=== PATIENT | female | born 1955 | race Caucasian/White ===

== ENCOUNTER 2016-12-09 18:48 | Emergency (ER) | payer MEDICARE ==
[~2016-12-09] VITALS: Ht 176.5 cm; Wt 54.0 kg
[2016-12-09 18:52] VITALS: BP 137/65; PULSE 64; RESP 20; TEMP 97.9; O2SAT 96
[2016-12-09 21:20] VITALS: BP 141/64; PULSE 53; RESP 20; O2SAT 99
[2016-12-09] MEDS ORDERED: ZOCO20TA PO (21:20)
[2016-12-09] MEDS ORDERED: SUCR1TAB PO (21:20)
[2016-12-09] MEDS ORDERED: LEVO50TA4 PO (21:20)
[2016-12-09] MEDS ORDERED: BENA25TA3 PO (21:20)
[2016-12-09] MEDS ORDERED: CLON1TAB PO (21:20)
[2016-12-09] MEDS ORDERED: LIAL1.2T PO (21:20)
[2016-12-09] MEDS ORDERED: ZOLO100T PO (21:20)
[2016-12-09] MEDS ORDERED: diphenhydrAMINE HCL 50 MG/ML VIAL IV PUSH ONE (21:30)
[2016-12-09] MEDS ORDERED: LORazepam 2 MG/ML VIAL IVP ONE (21:30)
--- NOTE | 2016-12-09 22:13 | PD ---
HPI Chief Complaint: Medical Clearance Time Seen by Provider: 21:06 Travel History International Travel<30 days: No Contact w/Intl Traveler<30days: No Traveled to known affect area: No History of Present Illness HPI This patient 61 years old. She suffers with a "functional movement disorder." She reports spasm activities involving muscle distributions throughout the face neck cord extremities. Evidently Klonopin 1.5 mg and Benadryl 25 mg given thrice daily confer benefit. Today she did not receive sufficient improvement following her nightly dose. She took an additional 0.25 mg of Klonopin and 25 mg of Benadryl which did not help. Her daughter got yesterday. She is visiting from [place]. Typically Ativan and Benadryl IV work as rescue interventions as reported by the patient and her daughter. Bright lights make her symptoms worse. PFSH Past Medical History Hx Anticoagulant Therapy: Yes (COUMADIN) High Cholesterol: Yes Cerebrovascular Accident: Yes (CVA/[id number] 2008) Neurologic: Yes (functional motor disorder) Immunizations Current: Yes Thyroid Disease: Yes (hypothyroid) Triglycerides - High: Yes Tetanus Vaccination: < 5 Years Influenza Vaccination: No ?: Not Social History Alcohol Use: No Tobacco Use: Yes Substance Use: No Allergies-Medications (Allergen,Severity, Reaction): Coded Allergies: Bupropion (Verified Allergy, Unknown, 12/09/16) Cephalosporins (Verified Allergy, Unknown, 12/09/16) Cipro (Verified Allergy, Unknown, 12/09/16) Codeine (Verified Allergy, Unknown, 12/09/16) Dairy (Verified Allergy, Unknown, 12/09/16) Effexor (Verified Allergy, Unknown, 12/09/16) Flagyl (Verified Allergy, Unknown, 12/09/16) High Fructose [place] Syrup (Verified Allergy, Unknown, 12/09/16) Hydrocodone (Verified Allergy, Unknown, 12/09/16) Latex (Verified Allergy, Unknown, 12/09/16) Novocain (Verified Allergy, Unknown, 12/09/16) Penicillin (Verified Allergy, Unknown, 12/09/16) Prednisone (Verified Allergy, Unknown, 12/09/16) Primidone (Verified Allergy, Unknown, 12/09/16) Sodium Hypochlorite (Verified Allergy, Unknown, 12/09/16) Sulfa (Verified Allergy, Unknown, 12/09/16) Tetracycline (Verified Allergy, Unknown, 12/09/16) Reported Meds & Prescriptions Reported Meds & Active Scripts Active Reported Lialda (Mesalamine) 1.2 Gm Tabdr 1.2 Gm PO BID Take with a meal. Sucralfate 1 Gm Tab 1 Gm PO TID on empty stomach Zoloft (Sertraline HCl) 100 Mg Tab 225 Mg PO DAILY Levothyroxine (Levothyroxine Sodium) 50 Mcg Tab 50 Mcg PO DAILY Zocor (Simvastatin) 20 Mg Tab 20 Mg PO DAILY Benadryl Allergy (Diphenhydramine HCl) 25 Mg Tab 25 Mg PO Q6H PRN Clonazepam 1 Mg Tab 1.5 Mg PO TID Review of Systems Except as stated in HPI: all other systems reviewed are Neg Physical Exam Narrative GENERAL: 61-year-old female somewhat thin mildly anxious occasional tremor-type activity is observed involving the extremities SKIN: Warm and dry. HEAD: Atraumatic. Normocephalic. EYES: Pupils equal and round. No scleral icterus. No injection or drainage. ROM intact w conjugate gaze. ENT: No nasal bleeding or discharge. Mucous membranes pink and moist. NECK: Trachea midline. No JVD. CARDIOVASCULAR: Regular rate and rhythm. No murmur appreciated. RESPIRATORY: No accessory muscle use. Clear to auscultation. Breath sounds equal bilaterally. GASTROINTESTINAL: Abdomen soft, non-tender, nondistended. Hepatic and splenic margins not palpable. MUSCULOSKELETAL: No obvious deformities. No clubbing. No cyanosis. No edema. NEUROLOGICAL: Awake and alert. No obvious cranial nerve deficits. Motor grossly within normal limits. Normal speech. No CN deficit. PSYCHIATRIC: Appropriate mood and affect; insight and judgment normal. Data Data Last Documented VS Vital Signs Date Time Temp Pulse Resp B/P Pulse Ox O2 Delivery O2 Flow Rate FiO2 12/09/16 23:05 50 20 126/71 99 Room Air 12/09/16 18:52 97.9 Orders Iv Access Insert/Monitor (12/09/16 21:23) Lorazepam Inj (Ativan Inj) (12/09/16 21:30) Diphenhydramine Inj (Benadryl Inj) (12/09/16 21:30) MDM Medical Decision Making Medical Screen Exam Complete: Yes Emergency Medical Condition: Yes Differential Diagnosis Functional movement disorder, spasm activity, benzodiazepine dependence, secondary gain Narrative Course Patient has received IV Ativan 1 mg and 25 mg of IV Benadryl. At about 10 PM she reported some apparent involuntary swallowing as well as an upward gaze and arrives evidently also involved. It was causing her some pain. On my exam she again demonstrated an occasional tremor-like movement somewhat well coordinated involving upper extremities. Range of motion of the eyes was normal with a conjugate gaze cranial nerves symmetric with no evidence focal deficit. No evidence of stroke. Family is quite familiar with the nature of the patient's disease. States typically a little more time confers benefit. The patient will be discharged home with plan for follow-up with as needed at home. Diagnosis Primary Impression: Functional movement disorder Referrals: Primary Care Physician call for appointment Additional Instructions: You have a choice when it comes to health care, and we are glad that you chose [facility]. Hopefully, we have met your expectations on today's visit. You are welcome to return to [facility] at any time, as we are committed to meeting the health care needs of our community. Med/Other Pt SpecificInfo: No Change to Meds Disposition: 01 DISCHARGE HOME Condition: Stable Matheus Strange MD Dec 09, 2016 22:13
[2016-12-09 23:05] VITALS: BP 126/71; PULSE 50; RESP 20; O2SAT 99
== END 2016-12-09 23:10 | disposition home or self-care (01) ==
LOC: NEPE 18:48
DX: G25.89 Other specified extrapyramidal and movement disorders (principal); M62.838 Other muscle spasm; E78.00 Pure hypercholesterolemia, unspecified; E03.9 Hypothyroidism, unspecified; Z79.899 Other long term (current) drug therapy; Z79.01 Long term (current) use of anticoagulants; Z72.0 Tobacco use; Z86.73 Personal history of transient ischemic attack (TIA), and cerebral infarction without residual deficits
CPT/HCPCS: 96374; 96375; 99283; J1200; J2060